=== PATIENT | female | born 1970 | race Asian ===

== ENCOUNTER 2021-09-09 13:31 | Emergency (ER) | payer BC, OTHER ==
[~2021-09-09] VITALS: Ht 160 cm; Wt 72.6 kg
--- NOTE | 2021-09-09 13:50 | NUR ---
BIB c/o left facial, arm, and leg numbness since monday and headache 5/10 pain scale. AMBULATORY, [id number]. PLACED ON BED
--- NOTE | 2021-09-09 14:05 | NUR ---
AT BED SIDE
[2021-09-09] MEDS ORDERED: IV NS 0.9% 1,000 ML BAG IV ONE (14:30)
[2021-09-09] MEDS ORDERED: diphenhydrAMINE HCL 50 MG/ML VIAL IV ONE (14:30)
[2021-09-09] MEDS ORDERED: PROCHLORPERAZINE EDISYLATE 10 MG/2 ML VIAL IVP ONE (14:30)
[2021-09-09] MEDS ORDERED: PROCHLORPERAZINE EDISYLATE 10 MG/2 ML VIAL ONE (14:34)
[2021-09-09] MEDS ORDERED: diphenhydrAMINE HCL 50 MG/ML VIAL ONE (14:34)
--- NOTE | 2021-09-09 14:45 | NUR ---
X-RAY TECH. AT BED SIDE
[2021-09-09 14:50] LABS: CALCIUM, SERUM 8.8 mg/dL (8.5-10.1); CARBON DIOXIDE 26 mmol/L (21-32); CHLORIDE 104 mmol/L (98-107); CREATININE 0.7 mg/dL (0.6-1.3); GLUCOSE 99 mg/dL (74-106); POTASSIUM 3.6 mmol/L (3.5-5.1); SODIUM SERUM 138 mmol/L (136-145); UREA NITROGEN, BLOOD 10 mg/dL (7-18)
[2021-09-09 14:59] LABS: BASOPHILS # (AUTO) 0.1 K/uL (0.0-0.2); EOSINOPHILS % (AUTO) 1.5 % (0.0-6.0); HEMATOCRIT 46 % (33-45); HEMOGLOBIN 15.2 g/dL (11.5-14.8); LYMPHOCYTES # (AUTO) 1.8 K/uL (0.8-4.8); LYMPHOCYTES % (AUTO) 25.2 % (20.0-44.0); MEAN CORPUSCULAR HGB CONC 33 g/dl (31.0-36.0); MEAN CORPUSCULAR VOLUME 89 fL (82-100); MONOCYTES # (AUTO) 0.3 K/uL (0.1-1.30); MONOCYTES % (AUTO) 4.8 % (2.0-12.0); NEUTROPHILS # (AUTO) 4.7 K/uL (1.8-8.9); NEUTROPHILS % (AUTO) 67.5 % (43.0-81.0); PLATELET COUNT (AUTO) 247 K/uL (150-450)
--- NOTE | 2021-09-09 15:00 | NUR ---
PATIENT WENT FOR CT HEAD VIA [facility]
--- NOTE | 2021-09-09 16:05 | NUR ---
CALLED DR. ZAVALA SPEAKING WITH DR. MOON.
[2021-09-09] MEDS ORDERED: ASPIRIN 325 MG TABLET ONE (16:15)
[2021-09-09] MEDS ORDERED: IOHEXOL-350 100 ML VIAL IV ONE (16:23)
[2021-09-09] MEDS ORDERED: IV NS 0.9% 250 ML IV ONE (16:24)
[2021-09-09] MEDS ORDERED: CT SWABBABLE VALVE TRANS SET 1 EA INFUS.SET MC ONE (16:24)
[2021-09-09] MEDS ORDERED: ASPIRIN 325 MG TABLET PO ONE (16:30)
--- NOTE | 2021-09-09 17:41 | NUR ---
SWAB FOR COVID 19 SENT TO LAB.
--- NOTE | 2021-09-09 19:59 | NUR ---
[phone]
--- NOTE | 2021-09-09 20:19 | NUR ---
[facility]X [facility] FROM [facility] TO [phone] [facility] ER TO ER TRANSFER
--- NOTE | 2021-09-09 20:35 | NUR ---
[facility] ON THE PHONE WITH DR MOON
--- NOTE | 2021-09-09 21:25 | NUR ---
CALLED [facility] NO ALS TRANSPORT AVAILABLE.
--- NOTE | 2021-09-09 21:36 | NUR ---
CALLED [facility] AND ASKED FOR TRANSPORTATION
--- NOTE | 2021-09-09 21:40 | NUR ---
PATIENT ACCEPTED UNDER DR QUILES AT [facility]. REPORT [phone]
--- NOTE | 2021-09-09 22:09 | NUR ---
AM [facility] ETA 1 AM
--- NOTE | 2021-09-09 22:34 | NUR ---
REPORT GIVEN TO NURSE CHIRINOS AT [facility] .
[2021-09-09 23:05] VITALS: BP 151/75
--- NOTE | 2021-09-10 01:12 | NUR ---
REPORT GIVEN TO [facility] AT BEDSIDE. PATIENT IS STABLE, NO ACUTE DISTRESS NOTED.
== END 2021-09-10 01:16 | disposition short-term general hospital (02) ==
LOC: ER 13:37
DX: R20.0 Anesthesia of skin (principal); R51.9 Headache, unspecified; Z20.822 Contact with and (suspected) exposure to COVID-19; I65.23 Occlusion and stenosis of bilateral carotid arteries; M50.221 Other cervical disc displacement at C4-C5 level
CPT/HCPCS: 36415; 70450; 70496; 70498; 71045; 80048; 80307; 84484; 84703; 85025; 85730; 87426; 93005; 96361; 96374; 96375; 99285; C9803; J0780; J1200; J7050; Q9967